=== PATIENT | male | born 1975 | race Caucasian/White ===

== ENCOUNTER 2018-10-24 09:12 | Emergency (ER) | payer MEDICAID ==
[~2018-10-24] VITALS: Ht 180.3 cm; Wt 102.1 kg
[2018-10-24 09:12] VITALS: BP_SYST 151
[2018-10-24] MEDS ORDERED: ALBUTEROL SULFATE 0.083% 2.5 MG/3 ML VIAL.NEB INH ONE (10:00)
[2018-10-24] MEDS ORDERED: PROMETHAZINE 6.25 MG/ CODEINE 10 MG/ 5 ML PO ONE (10:00)
[2018-10-24] MEDS ORDERED: IBUPROFEN 800 MG TABLET PO ONE (10:00)
[2018-10-24] MEDS ORDERED: AMOXICILLIN/CLAVULANATE POTASSIUM 875 MG TABLET PO ONE (10:00)
[2018-10-24 10:53] VITALS: BP_SYST 151
== END 2018-10-24 10:53 | disposition home or self-care (01) ==
LOC: SED 09:12
DX: J40 Bronchitis, not specified as acute or chronic (principal); R03.0 Elevated blood-pressure reading, without diagnosis of hypertension
CPT/HCPCS: 94640; 99284; J7613